=== PATIENT | female | born 1945 | race Caucasian/White ===

== ENCOUNTER 2017-02-24 11:22 | Emergency (ER) | payer MEDICARE, BC ==
[2017-02-24 12:00] LABS: Hematocrit 33.4 % (37.0-47.0); Hemoglobin 10.3 gm/dL (12.5-16.0); Mean Cell Volume 89.1 fl (78-100); Mean Corpuscular Hemoglobin 27.5 pg (27-31); Mean Corpuscular Hgb Conc 30.8 g/dl (32-36); Mean Platelet Volume 10.4 fl (6.0-9.5); Neutrophil # 3.7 K/mm3 (1.3-6.0); Platelet Count 182 K/mm3 (150-450); Red Blood Count 3.75 M/mm3 (4.2-5.4); Red Cell Distribution Width 12.7 % (11.5-14.0); White Blood Count 6.4 K/mm3 (4.0-10.5)
--- NOTE | 2017-02-24 12:02 | ERNOTE ---
GI Bleeding/Rectal Pain ER Date of Service: 02/24/17 Presenting Symptoms: rectal bleeding Time Seen by Provider: 02/24/17 11:36 Source: patient, other - Clinic HISTORICAL RECORDS ADMINISTRATOR Exam Limitations: no limitations Immunizations: IMMUNIZATION HX Immunizations Up to Date Yes History of Influenza Vaccine Yes Hx Pneumococcal Vaccination Yes Allergies/Adverse Reactions: Allergies estrogens, conjugated [From Premarin] Allergy (Severe, Verified 02/24/17 11:34) DVT MARIAM Inhibitors Adverse Reaction (Mild, Verified 02/24/17 11:34) cough erythromycin base [Erythromycin Base] Adverse Reaction (Mild, Verified 02/24/17 11:34) RASH metformin Adverse Reaction (Mild, Verified 02/24/17 11:34) Diarrhea, abd pain morphine Adverse Reaction (Mild, Verified 02/24/17 11:34) Altered mental status Penicillins Adverse Reaction (Mild, Verified 02/24/17 11:34) RASH Sulfa (Sulfonamide Antibiotics) [Sulfa(Sulfonamide Antibiotics)] Adverse Reaction (Mild, Verified 02/24/17 11:34) FLU LIKE S/S Home Medications: HOME MEDICATIONS Acetaminophen [Tylenol Extra Strength] 1,000 mg PO QID PRN 08/12/12 [Last Taken 02/01/15] FLUoxetine HCL [Prozac] 20 mg PO BID 08/12/12 [Last Taken 02/01/15] Gabapentin [Neurontin] 300 mg PO QPM 08/12/12 [Last Taken 02/01/15] Levothyroxine Sodium 125 mcg PO DAILY 08/12/12 [Last Taken 02/01/15] Warfarin Sodium [Coumadin] 2.5 mg PO MOTUTHFRSA 08/12/12 [Last Taken 02/01/15] Glimepiride [Amaryl] 0.5 mg PO BID 11/23/13 [Last Taken 02/01/15] Pantoprazole Sodium [Protonix] 40 mg PO BID #0 tablet. 11/28/13 [Last Taken ] Gabapentin 200 mg PO QAM 04/04/14 [Last Taken 02/01/15] Losartan Potassium 50 mg PO BID 04/04/14 [Last Taken 02/01/15] Atorvastatin Calcium [Lipitor] 80 mg PO DAILY 06/13/14 [Last Taken 02/01/15] Cholecalciferol (Vitamin D3) [Vitamin D3] 2,000 unit PO DAILY 06/13/14 [Last Taken 02/01/15] Metoprolol Tartrate [Lopressor] 25 mg PO BID 06/13/14 [Last Taken 02/01/15] Warfarin Sodium [Coumadin] 1.25 mg PO SUWE 02/02/15 [Last Taken Unknown] Ranitidine HCl [Zantac] 150 mg PO HS 05/09/16 [Last Taken Unknown] Narrative: Pt. comes in with c/o bloody stools for 18 hours Pt. went to [facility] and was sent here by HISTORICAL RECORDS ADMINISTRATOR as she had blood in her rectal vault on exam. Pt. denies any pain, NVD, fever, or recent illness. Pt. is on coumadin for chronic DVTs and has a h of hemorrhoids fifty years ago. Review of Systems - Review of Systems Constitutional: Present: no symptoms reported. Absent: recent illness, fever, chills, weakness, fatigue, malaise EYE: Present: no symptoms reported ENT: Present: no symptoms reported Respiratory: Present: no symptoms reported. Absent: shortness of breath, cough , wheezing Cardiology: Present: no symptoms reported. Absent: chest pain, palpitations, edema Gastrointestinal/Abdominal: Present: other - bloody stools. Absent: nausea, vomiting, diarrhea, abdominal pain Genitourinary: Present: no symptoms reported. Absent: frequency, decreased urinary output Musculoskeletal: Present: no symptoms reported. Absent: back pain, joint pain Skin: Present: no symptoms reported Neurological: Present: no symptoms reported. Absent: headache, dizziness/light- headedness, numbness, tingling All Other Systems: All systems neg except as marked - Patient's Past Medical History Patient History - Medical: Diabetes Type 2, GERD, Hypothyroidism Patient History - Cardiac/Respiratory: Deep Vein Thrombosis, Hypertension, Hyperlipidemia Patient History - Cancer: No Hx of Cancer Patient History - Surgical Procedures: Angioplasty, Appendectomy, Colonoscopy, EGD, Hysterectomy Patient History - Other: None - Family History Brother Family History - Medical: Diabetes Type 2 Family History - Cardiac/Respiratory: Coronary Heart Disease, Hypertension, Hyperlipidemia, Myocardial Infarction Father Family History - Medical: Family History - Cardiac/Respiratory: CVA/Stroke, Hypertension Mother Family History - Medical: , Arthritis Family History - Cardiac/Respiratory: CHF, COPD Sister Family History - Cardiac/Respiratory: Asthma, Hypertension Grandfather-Maternal Family History - Medical: , Diabetes Type 2 Grandmother-Maternal Family History - Medical: , Diabetes Type 2 - Social History Living Situations: spouse Psych History: Hx of Anxiety, Hx of Depression, Current tx/ever been on anti- depressants or anti-anxiety meds Smoking Status: Former smoker Drug Use: none - Immunizations Immunizations Up to Date: Yes Hx Pneumococcal Vaccination: Yes History of Influenza Vaccine: Yes Physical Exam - Physical Exam General Appearance: Present: wd/wn, alert, no apparent distress Eye Exam: Normal inspection: bilateral, PERRL: bilateral, EOMI: bilateral Ears, Nose, Throat: Present: normal ENT inspection, normal pharynx Neck: Present: normal inspection, nontender. Absent: lymphadenopathy (R), lymphadenopathy (L) Respiratory: Present: no respiratory distress, normal breath sounds, no accessory muscle use, chest nontender, lungs clear Cardiovascular/Chest: Present: regular rate, rhythm, no murmur, normal peripheral pulses Gastrointestinal/Abdominal: Present: normal bowel sounds, nontender, nondistended, soft, no organomegaly Rectal Exam: Present: nontender, normal rectal tone, blood-streaked stool. Absent: heme negative stool, tenderness, hemorrhoids Back Exam: Present: normal inspection Extremity Exam: Present: normal inspection, non-tender, normal range of motion, no edema Neurological Exam: Present: alert, oriented, normal mood/affect, no motor/ sensory deficits, estimator binding II-XII nml as tested, normal cerebellar test Skin Exam: Present: normal color, warm/dry. Absent: pallor, skin rash ED Progress - Date and Time Seen: Date and Time: 02/24/17 14:[address] liriano and he would like pt. to get tagged red cell study today and follow up with his HISTORICAL RECORDS ADMINISTRATOR on Monday - Results and Orders Patient's Lab Results:: I have reviewed the patient's lab results. - Vital Signs Patient's Vital Signs:: I have reviewed the patient's vital signs. Vital Signs: Vital Signs 02/24/17 11:24 Temperature 36.4 C L Pulse Rate 68 Respiratory 16 Rate Blood Pressure 152/72 O2 Sat by Pulse 98 Oximetry - CT/Ultrasound CT/Ultrasound Narrative: Red cell tagged study negative for GI bleed. - Progress/Reassessment Chief Complaint: Rectal Bleeding Departure Clinical Impression: Rectal bleed - Departure Disposition: Home self-care Condition: Good Instructions: Bloody Diarrhea Additional Instructions: Please follow up with [facility] on Monday as scheduled. Please increase fluid intake until then. Drink at least 4-6 large glasses of water. Referrals: Rom Celis MD [Primary Care Provider] -
[2017-02-24 12:11] LABS: Prothrombin Time (Patient) 23.7 Seconds (9.4-11.4)
[2017-02-24 12:13] LABS: Albumin * 3.3 gm/dl (3.4-5.0); Anion Gap 8.6 mmol/L (6.8-13.8); BUN/Creatinine Ratio 15.8 (9.0-21.6); Bilirubin, Total 0.5 mg/dL (0.0-1.1); Ca. Corrected For Albumin 10.6 mg/dL (8.4-10.2); Calcium * 10.4 mg/dL (7.9-10.9); Carbon Dioxide 32.1 mmol/L (24-32.6); Potassium 4.7 mmol/L (3.4-4.6)
[2017-02-24 12:16] LABS: INR 2.28 INR (0.90-1.10); Partial Thrombolplastin Time 33.2 Seconds (24-32)
--- OUTSIDE RECORDS SUMMARY | 2017-02-24 12:31 | XMS REPORT | Continuity of Care Document ---
:1945 Author Organization [facility] ([facility]) Address [address] [place] [address] Phone [phone] Care Team Providers Name Role Phone Rom Celis Primary Care Provider [phone] Source Comments This disclosure is being made pursuant to the Care Everywhere program, applicable federal and state laws, and may not contain all informaitonavailable regarding this patient.[facility] ([facility]) Active Allergies and Adverse Reactions Allergen Noted Date Severity Reactions Comments Conjugated Estrogens 11/29/2011 OTHER Blood clots Erythromycin 11/29/2011 Rash Penicillins 11/29/2011 Rash Sulfa (Sulfonamide Antibiotics) 11/29/2011 Nausea & Vomiting Current Medications Prescription Sig. Disp. Refills Start Date End Date Status glimepiride (AMARYL) Take 2.5 mg by Active 1 mg tablet mouth daily . docusate (COLACE) Take 100 mg by Active 100 mg capsule mouth 2 times daily as needed. Indications: Constipation fluticasone use 1 [place] into Active (FLONASE) 50 the nose daily as mcg/Actuation nasal needed. spray levothyroxine Take 125 mcg by Active (LEVOXYL) 125 mcg mouth every morning tablet before breakfast. atorvastatin Take 80 mg by mouth Active (LIPITOR) 80 mg every evening. tablet metoPROLol (TOPROL Take 25 mg by mouth Active XL) 25 mg XL tablet 2 times daily. warfarin 2.5 mg Take 2.5 mg by Active tablet mouth daily. Indications: As per INR SENNOSIDES (SENOKOT Take 2 Tabs by Active PO) mouth at bedtime as needed. fluoxetine 20 mg Take 20 mg by mouth Active tablet 2 times daily. gabapentin Take 100 mg by Active (NEURONTIN) 300 mg mouth 2 times daily capsule . acetaminophen 500 mg Take 500 mg by Active tablet mouth every 6 hours as needed. pantoprazole 20 mg Take 40 mg by mouth Active EC tablet 2 times daily . cholecalciferol, Take 2 tablets by Active VITAMIN D3, PO mouth daily . losartan 50 mg Take 75 mg by mouth Active tablet daily . GUAIFENESIN/PHENYLEP Active HRINE HCL (AMI-FRANKLYN LA PO) pantoprazole 40 mg Take 1 tablet (40 30 tablet 6 11/18/2015 Active EC tablet mg total) by mouth 2 times daily. ranitidine 150 mg Take 1 tablet (150 30 tablet 11 11/18/2015 Active tablet mg total) by mouth at bedtime. lubiprostone Take 24 mcg by Active (AMITIZA) 24 mcg mouth 2 times daily capsule Take with food and water . polyethylene glycol Take 17 g by mouth Active 3350 17 gram packet at bedtime. OTHER Apply topically as Active needed Gel for mouth prn . linaclotide Take 1 capsule (290 30 capsule 3 12/02/2015 Active (LINZESS) 290 mcg mcg total) by mouth capsule daily. Active Problems Problem Noted Date Dermatochalasis of eyelid 03/27/2014 Brow ptosis 03/27/2014 Unspecified urinary incontinence 11/30/2011 Diabetes mellitus 11/30/2011 HTN (hypertension) 11/30/2011 DVT (deep venous thrombosis) 11/30/2011 Hypothyroid 11/30/2011 Social History Tobacco Use Types Packs/Day Years Used Date Former Smoker Cigarettes 2 30 Quit: 09/25/1992 Smokeless Tobacco: Never Used Alcohol Use Drinks/Week oz/Week Comments No Last Filed Vital Signs Vital Sign Reading Time Taken Blood Pressure 145/62 12/02/2015 3:03 PM WINDOWS SERVER ENGINEER Pulse 66 12/02/2015 3:03 PM WINDOWS SERVER ENGINEER Temperature 36.7 C (98.1 F) 12/02/2015 3:03 PM WINDOWS SERVER ENGINEER Respiratory Rate 16 11/23/2015 10:19 AM WINDOWS SERVER ENGINEER Height 1.613 m (5' 3.5") 12/02/2015 3:03 PM WINDOWS SERVER ENGINEER Weight 113.4 kg (250 lb) 12/02/2015 3:03 PM WINDOWS SERVER ENGINEER Body Mass Index 43.59 12/02/2015 3:03 PM WINDOWS SERVER ENGINEER Oxygen Saturation 100% 11/23/2015 10:19 AM WINDOWS SERVER ENGINEER Plan of Care Health Maintenance Due Date Last Done Comments Hepatitis B Vaccine (1 of 3 - Primary Series) 1945 Tdap Vaccine 1954 DIABETIC: Cholesterol 1961 Diabetic: Hdl 1961 DIABETIC: Hemoglobin A1C 1961 Diabetic: Ldl 1961 DIABETIC: Microalbumin 1961 DIABETIC: Triglycerides 1961 Td Vaccine 1961 Mammogram 1983 Zoster Vaccine 2003 Osteoporosis Screening (DXA Bone Density) 02/20/2008 Pneumococcal Vaccine (1 of 2 - PCV13) 02/20/2008 DIABETIC: Foot Exam 04/02/2012 DIABETIC: Retinal Eye Exam 04/02/2012 Influenza Vaccine: Seasonal (#1) 04/25/2016 Colonoscopy 12/02/2025 12/03/2015 Results from Last 3 Months Not on file
[2017-02-24] MEDS ORDERED: CLONIDINE HCL 0.1 MG TABLET PO ONE (13:09)
[2017-02-24] MEDS ORDERED: CLONIDINE HCL 0.1 MG TABLET ONE (13:25)
[2017-02-24 13:27] VITALS: BP 164/72
== END 2017-02-24 16:20 | disposition home or self-care (01) ==
LOC: ER 11:22
DX: K62.5 Hemorrhage of anus and rectum (principal); E11.9 Type 2 diabetes mellitus without complications; K21.9 Gastro-esophageal reflux disease without esophagitis; E03.9 Hypothyroidism, unspecified; I10 Essential (primary) hypertension; E78.5 Hyperlipidemia, unspecified
CPT/HCPCS: 36415; 78278; 80053; 85025; 85610; 85730; 99285; A9560